=== PATIENT | male | born 1940 | race Caucasian/White ===

== ENCOUNTER 2018-11-19 09:53 | Day surgery (SDC) | payer OTHER ==
[~2018-11-19 09:53] MED LIST: GLUCOPHA PO; NAMENDA10 MG PO; OCUVITE EYE HE1 EACH PO; PRAVACHOL80 MG PO; PROSCAR5 MG PO; TAMS0.4C PO; ZOLOFT PO; [UNRECOGNIZED DRUG - OTHER]
== END 2018-11-19 17:45 | disposition home or self-care (01) ==
LOC: CIR.AMB 09:53
DX: C67.2 Malignant neoplasm of lateral wall of bladder (principal); C67.3 Malignant neoplasm of anterior wall of bladder; C67.4 Malignant neoplasm of posterior wall of bladder